=== PATIENT | female | born 1990 | race Two or more races ===

== ENCOUNTER 2021-12-04 00:37 | Emergency (ER) | payer OTHER ==
[~2021-12-04] VITALS: Ht 177.8 cm; Wt 142.7 kg
[2021-12-04 07:45] VITALS: BP 152/89
[2021-12-04] MEDS ORDERED: CEPH-509 PO ×2 (08:10→18:08)
[2021-12-04] MEDS ORDERED: ACET-1158 PO (08:10)
[2021-12-04] MEDS ORDERED: cefTRIAXone SOD 1,000 MG VL IM ONE (08:15)
[2021-12-04] MEDS ORDERED: TETANUS-DIPTH-ACEL PERTUSSIS 0.5ML SYR Tdap IM ONE (08:15)
== END 2021-12-04 08:34 | disposition home or self-care (01) ==
LOC: ER 00:37
DX: L03.115 Cellulitis of right lower limb (principal); J45.909 Unspecified asthma, uncomplicated; Z79.899 Other long term (current) drug therapy
CPT/HCPCS: 90471; 90715; 96372; 99284; J0696